=== PATIENT | male | born 1995 | race Caucasian/White ===

== ENCOUNTER 2016-06-27 20:39 | Emergency (ER) | payer BC ==
--- NOTE | 2016-06-27 22:09 | ED CLINICAL REPORT ---
Clinical Report - Physicians/Mid Levels [facility] [address] [place] [place] [address] 06/27/2016 20:41 Patient: SHERRILL ROCHA V Time Seen: 20:52; initial patient contact. Arrived- By private vehicle. Historian- patient. HISTORY OF PRESENT ILLNESS Chief Complaint: Injury to the right middle finger. The injury happened just prior to arrival. The patient sustained a laceration from a knife. Occurred at home. Patient is experiencing mild pain. Patient denies injury to the head or neck. REVIEW OF SYSTEMS The patient sustained a laceration. No swelling, tingling, numbness or weakness. All systems otherwise negative, except as recorded above. PAST HISTORY Appendicitis. SURGERIES: Appendectomy. The patient's dominant hand is the left. Last tetanus immunization was more than 5 years ago. Medications: None. Allergies: No Known Drug Allergy. SOCIAL HISTORY Never smoker. No alcohol use or drug use. ADDITIONAL NOTES The nursing notes have been reviewed with agreement regarding the chief complaint, PMH and patient medications and allergies. PHYSICAL EXAM Vital Signs: 06/27/2016 20:47 BP: 125/65. HR: 116. RR: 16. O2 saturation: 100%. Temp: 98.6 F. Pain level now: 3/10. Have been reviewed. Blood pressure normal. Tachycardic. Respiratory rate normal. Temperature normal. Oxygen saturation normal. Appearance: Alert. Oriented X3. No acute distress. Skin: Skin warm and dry. Extremities: Right middle finger: subcutaneous 4.0 cm laceration. No wrist injury. Hand and wrist exam otherwise negative. Extremities otherwise negative. Neuro, Vascular and Tendons: Vascular status intact. Sensation intact. Motor intact. Tendon function intact. Neuro: Oriented X 3. No motor deficit. No sensory deficit. PROGRESS AND PROCEDURES Digital Nerve Block - Finger: Time: 22:06. Per protocol, time-out completed immediately before the procedure. Digital nerve block performed on the right middle finger. Web space approach utilized. Landmarks identified. Skin prepped. Total volume of 3 mL 1% Lidocaine infiltrated via two punctures using a 27-gauge needle. Patient cooperative during procedure. No complications encountered. Excellent anesthesia achieved. Laceration Repair: Time: 22:07. Location: right middle finger. Per protocol, time-out completed immediately before the procedure. Length: 4 cm. Complexity: complex (requiring revision of wound margins). Wound depth/shape- curved and subcutaneous. Distal neuro/vascular/tendon status normal. Anesthesia provided by digital block using 1% lidocaine. Prepped with Shur-Clens. Wound explored, cleansed and examined to the base in bloodless field extensively with normal saline. Closure of skin: interrupted 4-0 Prolene (5 sutures). Post-procedure: he is stable and there are no complications. Bleeding is controlled and neuro-vascular status is intact distal to the wound. Dressing applied. Tetanus immunization given. Estimated blood loss: 3 mL. Disposition: Discharged home in good and improved condition. Condition: good. CLINICAL IMPRESSION Single deep laceration to the right middle finger.No foreign body present or right fingernail injury. INSTRUCTIONS Protect wound and keep wound area clean. Change dressing twice daily. You may wash wounds briefly, then dry. Apply bacitracin twice daily. Sutures should be removed in seven days. Limit use of your right hand until released. Follow-up: Follow up with your doctor in seven days for suture removal. Call for an appointment. Screening today revealed the patient's blood pressure to be in the pre-hypertensive range. The patient should follow up with a primary care provider for blood pressure management. (Electronically signed by Gavino Johnson Dr. 06/27/2016 22:11)
--- NOTE | 2016-06-27 22:09 | ED NURSING NOTES ---
Clinical Report - Nurses [facility] [address] [place] [address] 06/27/2016 20:41 Patient: SHERRILL ROCHA V TRIAGE Acuity: LEVEL 4. Chief Complaint: INJURY TO RIGHT HAND. Alert. No acute distress. --20:51 Claire Retana R.N. 20:47 06/27/16. BP: 125/65. HR: 116. RR: 16. O2 saturation: 100% on room air. Temp: 98.6 F (oral). Pain level now: 08/13. --20:51 Claire Retana R.N. Weight: 170 kg stated. Height/Length: 76 inches Per Patient. BMI: 45.6. Growth Chart Percentile: Weight: 100%. Height/Length: 98.9%. --20:51 Claire Retana R.N. Medications None. --20:47 Claire Retana R.N. Medication/allergy information source: the patient. --20:51 Claire Retana R.N. Allergies No Known Drug Allergy. --20:48 Claire Retana R.N. History Arrived by private vehicle. Historian: patient. Accompanied by grandfather. This occurred just prior to arrival. He sustained a laceration from a sharp edge. Treatment AUTOMOTIVE PARTS COUNTER ASSOCIATE: None. PAST MEDICAL HX: Tetanus status: unknown. SOCIAL HX: Never smoker. No alcohol use or drug use. FALL RISK ASSESSMENT: Fall risk assessment completed. No fall risk identified. NUTRITIONAL RISK ASSESSMENT: The nutritional risk assessment revealed no deficiencies. FUNCTIONAL ASSESSMENT: Functional assessment: no impairments noted. LEARNING NEEDS ASSESSMENT: The learning needs assessment revealed no barriers. SKIN INTEGRITY ASSESSMENT: Skin integrity risk assessment completed. No skin integrity risk identified. --20:51 Claire Retana R.N. PROBLEMS: Appendicitis. --20:48 Claire Retana R.N. ADDITIONAL SURGERIES: Appendectomy. --20:48 Claire Retana R.N. Interventions ID band on patient. To treatment room. --20:51 Claire Retana R.N. PHYSICAL ASSESSMENT 20:52 06/27/16. Ambulatory to room. GENERAL / NEURO / PSYCH: Oriented X 4. Alert. Appears in no acute distress. EXTREMITIES: Capillary refill is less than 2 seconds in the extremities. Extremity pulses are within normal limits. Neuro-vascular status intact to the extremity. Right middle finger: laceration with controlled bleeding. SKIN: Skin is warm and dry. --20:52 Claire Retana R.N. NURSING PROGRESS NOTES 20:52 06/27/16. Two patient identifiers checked. Call light placed in reach. Bed placed in lowest position. Brakes of bed on. Patient ready for evaluation- chart flagged. --20:52 Claire Retana R.N. 21:19 06/27/2016 CBRHBTR-ZHIDYW-ARLLV PERTUSSIS IM 0.5 mL given. (Lot#: [id number], expiration date: 03/03/2018). Given in the right deltoid. Allergies verified and confirmed 5 rights. Vaccine information statement provided to the patient. --21:19 Claire Retana R.N. ( wound cleansed with soap and water, bacitracin on, covered with band aid and then finger tube gauze). --22:15 Susana Zayas. DISPOSITION / DISCHARGE Departure time: 2214. Discharge instructions provided and reviewed with the patient. Patient verbalized understanding. Written instructions provided in Dutch. The patient was discharged by the physician. He was discharged home and accompanied by family. He left the Emergency Department ambulatory and via private vehicle. Family member driving. --22:16 Susana Zayas Condition at departure: improved and stable. --22:16 Susana Zayas. Locked/Released at 06/27/2016 22:16 by Susana Zayas,
--- NOTE | 2016-06-27 22:09 | ED NURSING NOTES ---
Clinical Report - Nurses [facility] [address] [place] [address] 06/27/2016 20:41 Patient: SHERRILL ROCHA V TRIAGE Acuity: LEVEL 4. Chief Complaint: INJURY TO RIGHT HAND. Alert. No acute distress. --20:51 Claire Retana R.N. 20:47 06/27/16. BP: 125/65. HR: 116. RR: 16. O2 saturation: 100% on room air. Temp: 98.6 F (oral). Pain level now: 08/13. --20:51 Claire Retana R.N. Weight: 170 kg stated. Height/Length: 76 inches Per Patient. BMI: 45.6. Growth Chart Percentile: Weight: 100%. Height/Length: 98.9%. --20:51 Claire Retana R.N. Medications None. --20:47 Claire Retana R.N. Medication/allergy information source: the patient. --20:51 Claire Retana R.N. Allergies No Known Drug Allergy. --20:48 Claire Retana R.N. History Arrived by private vehicle. Historian: patient. Accompanied by grandfather. This occurred just prior to arrival. He sustained a laceration from a sharp edge. 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 PAST MEDICAL HX: Tetanus status: unknown. SOCIAL HX: Never smoker. No alcohol use or drug use. FALL RISK ASSESSMENT: Fall risk assessment completed. No fall risk identified. NUTRITIONAL RISK ASSESSMENT: The nutritional risk assessment revealed no deficiencies. FUNCTIONAL ASSESSMENT: Functional assessment: no impairments noted. LEARNING NEEDS ASSESSMENT: The learning needs assessment revealed no barriers. SKIN INTEGRITY ASSESSMENT: Skin integrity risk assessment completed. No skin integrity risk identified. --20:51 Claire Retana R.N. PROBLEMS: Appendicitis. --20:48 Claire Retana R.N. ADDITIONAL SURGERIES: Appendectomy. --20:48 Claire Retana R.N. Interventions ID band on patient. To treatment room. --20:51 Clarie Retana R.N. PHYSICAL ASSESSMENT 20:52 06/27/16. Ambulatory to room. GENERAL / NEURO / PSYCH: Oriented X 4. Alert. Appears in no acute distress. EXTREMITIES: Capillary refill is less than 2 seconds in the extremities. Extremity pulses are within normal limits. Neuro-vascular status intact to the extremity. Right middle finger: laceration with controlled bleeding. SKIN: Skin is warm and dry. --20:52 Claire Retana R.N. NURSING PROGRESS NOTES 20:52 06/27/16. Two patient identifiers checked. Call light placed in reach. Bed placed in lowest position. Brakes of bed on. Patient ready for evaluation- chart flagged. --20:52 Claire Retana R.N. 21:19 06/27/2016 FJWCFXA-KHKFYY-RRXOQ PERTUSSIS IM 0.5 mL given. (Lot#: [id number], expiration date: 03/03/2018). Given in the right deltoid. Allergies verified and confirmed 5 rights. Vaccine information statement provided to the patient. --21:19 Claire Retana R.N. ( wound cleansed with soap and water, bacitracin on, covered with band aid and then finger tube gauze). --22:15 Susana Zayas. DISPOSITION / DISCHARGE Departure time: 2214. Discharge instructions provided and reviewed with the patient. Patient verbalized understanding. Written instructions provided in Guatemalan. The patient was discharged by the physician. He was discharged home and accompanied by family. He left the Emergency Department ambulatory and via private vehicle. Family member driving. --22:16 Susana Zayas Condition at departure: improved and stable. --22:16 Susana Zayas. Locked/Released at 06/27/2016 22:16 by Susana Zayas,
--- NOTE | 2016-06-27 22:09 | ED ORDER SUMMARY ---
..... Patient: SHERRILL ROCHA V OrderSheet [facility] VisitID: [id number] [address] [place] [address] 20y, M Registration Date/Time: 06/27/2016 ORDER SHEET Weight: 170.0 kg (stated) Allergies: No Known Drug Allergy GENERAL ORDERS: Suture Set-up: (21:04 06/27/2016 Winnie Napier) (21:13 MWinterer R.N.) MEDICATION ORDERS: Loulfom-Dxwjzo-Itrgn Pertussis IM 0.5 mL (NOW, per protocol) (21:04 06/27/2016 Winnie Napier) (Ack 21:13 MWinterer R.N.) (21:19 MWinterer R.N.) IV FLUIDS: ORDER SHEET NOTES: [Electronically signed by Gavino Johnson Dr. (22:11 06/27/2016)] [Electronically signed by Susana Zayas (22:16 06/27/2016)] [Electronically locked/signed by Susana Zayas (22:16 06/27/2016)]
--- NOTE | 2016-06-27 22:09 | ED ORDER SUMMARY ---
..... Patient: SHERRILL ROCHA V OrderSheet [facility] VisitID: [id number] [address] [place] [address] 20y, M Registration Date/Time: 06/27/2016 ORDER SHEET Weight: 170.0 kg (stated) Allergies: No Known Drug Allergy GENERAL ORDERS: Suture Set-up: (21:04 06/27/2016 Winnie Napier) (21:13 MWinterer R.N.) MEDICATION ORDERS: Clutufw-Nllnqo-Vprac Pertussis IM 0.5 mL (NOW, per protocol) (21:04 06/27/2016 Winnie Napier) (Ack 21:13 MWinterer R.N.) (21:19 MWinterer R.N.) IV FLUIDS: ORDER SHEET NOTES: [Electronically signed by Gavino Johnson Dr. (22:11 06/27/2016)] [Electronically signed by Susana Zayas (22:16 06/27/2016)] [Electronically locked/signed by Susana Zayas (22:16 06/27/2016)]
--- NOTE | 2016-06-27 22:17 | ED DISCHARGE INSTRUCTIONS ---
Patient: SHERRILL ROCHA V General Instructions [facility] VisitID: [id number] [place] [address] 20y, M Registration Date/Time: 06/27/2016 Single deep laceration to the right middle finger.No foreign body present or right fingernail injury. INSTRUCTIONS Protect wound and keep wound area clean. Change dressing twice daily. You may wash wounds briefly, then dry. Apply bacitracin twice daily. Sutures should be removed in seven days. Limit use of your right hand until released. Follow-up: Follow up with your doctor in seven days for suture removal. Call for an appointment. Screening today revealed the patient's blood pressure to be in the pre-hypertensive range. The patient should follow up with a primary care provider for blood pressure management. ADDITIONAL INFORMATION Laceration (All Closures) Alaceration is a cut through the skin. This will usually require stitches (sutures) or ujdson if it is deep. Minor cuts may be treated with a surgical tape closure orskin glue. Home care The following guidelines will help you care for your laceration at home: Extremity, face, or trunk wounds Keep the wound clean and dry. If a bandage was applied and it becomes wet or dirty, replace it. Otherwise, leave it in place for the first 24 hours. If stitches or judson were used, clean the wound daily. After removing the bandage, wash the area with soap and water. Use a wet cotton swab to loosen and remove any blood or crust that forms. The doctor may prescribe an antibiotic cream or ointment to prevent infection. Do not stop taking this medication until you have finished the prescribed course or the doctor tells you to stop. The doctor may also prescribe medications for pain. Follow the doctors instructions for taking these medications. You may remove the bandage to shower as usual after the first 24 hours, but do not soak the area in water (no swimming) until the stitches or judson are removed. If surgical tape was used, keep the area clean and dry. If it becomes wet, blot it dry with a towel. If skin glue was used, do not scratch, rub, or pick at the adhesive film. Do not place tape directly over the film. Do not apply liquid, ointment, or creams to the wound while the film is in place. Do not clean the wound with peroxide and do not apply ointments. Avoid activities that cause heavy sweating until the film has fallen off. Protect the wound from prolonged exposure to sunlight or tanning lamps. You may shower as usual but do not soak the wound in water (no baths or swimming). The film will fall off by itself in 510 days. Scalp wounds During the first two days, you may carefully rinse your hair in the shower to remove blood, glass or dirt particles. After two days, you may shower and shampoo your hair normally. Do not soak your scalp in the tub or go swimming until the stitches or judson have been removed. Talk with your doctor before applying any antibiotic ointment to the wound. Mouth wounds Eat soft foods to reduce pain. If the cut is inside of your mouth, clean by rinsing after each meal and at bedtime with a mixture of equal parts water and hydrogen peroxide (do not swallow!). Or, you can use a cotton swab to directly apply hydrogen peroxide onto the cut. Mouth wounds can be painful when eating. You may use an ywtt-rwl-cjnajqe local numbing solution for pain relief. If this is not available, you may use any numbing solution for teething babies. You may apply this directly to the sores with a cotton-tip swab or with your finger. Follow-up care Follow up with your health care provider. Most skin wounds heal within ten days. Mouth and facial wounds heal within five days. However, even with proper treatment, a wound infection may sometimes occur. Therefore, you should check the wound daily for signs of infection listed below. Stitches should be removed from the face within five days; stitches and judson should be removed from other parts of the body within 714 days. If dissolving stitches were used in the mouth, these will fall out or dissolve without the need for removal. If tape closures were used, remove them yourself if they have not fallen off after 7 days. Ifskin glue was used, the film will fall off by itself in 510 days. When to seek medical care Get prompt medical attention if any of these occur: Bleeding not controlled by direct pressure Signs of infection, including increasing pain in the wound, increasing wound redness or swelling, or pus coming from the wound Fever of 100.4F (38C) or higher, or as directed by your health care provider Stitches or judson come apart or fall out or surgical tape falls off before 7 days Wound edges re-open Laceration: Will There Be A Scar? A laceration is a cut through one or more layers of the skin. The goal of emergency treatment is to clean the wound and close it to prevent infection, control bleeding and speed healing. Cuts heal because the body is able to repair the skin by "sealing" the edges together with collagen, a kind of "skin cement." How deep your cut is, its location on your body, your age and the way your skin heals all determine how visible the final scar will be. Some persons tend to heal with more scar tissue than others. This cut will probably heal similar to other cuts you have had in the past. What You Can Do: There are a few simple things that you can do to limit the amount of scar that forms: 1) PREVENT INFECTION: An infected wound makes a bigger scar. Keep the wound clean and dry. Change the dressing and apply any ointment/cream as directed. 2) MASSAGE THE WOUND:After the stitches have been removed: Use a moisturizing cream or lotion containing Aloe or Vitamin E Oil and gently massage the skin around the wound with your fingertips (wash your hands first!). Do this twice a day for the first two weeks, then once a day for a month. This will increase the flow of oxygen and blood to the wound and prevent excess scar tissue from building up. 3) AVOID SUN EXPOSURE: During the first six months, avoid sun exposure since the scar may james a much darker color than the skin around it. When in the sun, use SPF #50 (or greater) sun block on the scar, or cover the area with a hat or clothing. What To Expect: -- The cut will be sealed within 2 days and will be strong within 5-10 days. However, it will take at least SIX MONTHS for it to be fully healed. -- During the FIRST THREE MONTHS, you may notice the scar line getting more red or purple in color. The scar may become raised. The skin around the wound may feel thick and lumpy. -- During the FOURTH TO SIXTH MONTHS, this process begins to reverse. The red and purple color will fade, the scar line flattens, and the skin around it feels more normal. -- In most cases, the way the scar line looks after six months is the way it will remain, although there may be some continued improvement up to one year after the injury. Is There Anything Else That Can Be Done? If you do not like the way the scar looks after six months, a plastic surgeon may be able to perform a "scar revision." If you have any questions or problems as your wound heals, contact your doctor or this facility. We will be glad to assist you. Bandage Change If the bandage becomes wet or dirty, replace it. Otherwise, leave it in place for the first 24 hours. Then once a day: After removing the bandage, wash the area with soap and water. Use a wet cotton swab to loosen and remove any blood or crust that forms on the wound. After cleaning, apply a thin layer of antibiotic ointment or cream. Reapply the bandage. You may shower as usual after the first 24 hours. If the bandage is on an arm or leg, cover it with a plastic bag rubber banded at both ends before showering. No tub baths or swimming until the bandage is removed and the wound healed (at least 7 days). You have been given the following additional information: Laceration, All Laceration, How To Minimize Scar Dressing Change Limit use of your right hand until released. (Electronically signed by Gavino Johnson Dr. 06/27/2016 22:11)
--- NOTE | 2016-06-27 22:17 | ED MED RECONCILIATION SUMMARY ---
Patient: SHERRILL ROCHA V Medication Reconciliation Report [facility] VisitID: [id number] [address] [place] [address] 20y, M Registration Date/Time: 06/27/2016 Weight: 170.0 kg Height/Length: 76 in. BMI: 45.6 ALLERGIES: No Known Drug Allergy The patient's Home Medications are listed below: NONE. The source(s) of the original Home Medication information: patient The following Medications were given to the patient in the Emergency Department: GSCVSVJ-CMAKJJ-QFFQO PERTUSSIS [IM] IM 0.5 mL, administered: 06/27/2016 9:19:00 PM The following Medications were prescribed to the patient: None.
--- NOTE | 2016-06-27 22:17 | ED MAR SUMMARY ---
..... Medication Administration Record [facility] [address] [place] [address] Patient: SHERRILL ROCHA V Visit ID: [id number] 20y, M Weight: 170.0 kg Height/Length: 76 in BMI: 45.6 ALLERGIES: No Known Drug Allergy Given 21:19 06/27/2016 Claire Retana R.N. Medication Administered: XSMKPYE-DKSBWB-SYOQK PERTUSSIS [IM], Dose: 0.5 mL IM. Medication Ordered: Jnzpwni-Prjcbq-Zeofj Pertussis IM 0.5 mL (NOW, per protocol).
--- NOTE | 2016-06-27 22:17 | ED MAR SUMMARY ---
..... Medication Administration Record [facility] [address] [place] [address] Patient: SHERRILL ROCHA V Visit ID: [id number] 20y, M Weight: 170.0 kg Height/Length: 76 in BMI: 45.6 ALLERGIES: No Known Drug Allergy Given 21:19 06/27/2016 Claire Retana R.N. Medication Administered: GENIRCF-PXZKYW-AUXVF PERTUSSIS [IM], Dose: 0.5 mL IM. Medication Ordered: Njsgfls-Gjahfn-Wwrwy Pertussis IM 0.5 mL (NOW, per protocol).
--- NOTE | 2016-06-27 22:17 | ED MED RECONCILIATION SUMMARY ---
Patient: SHERRLIL ROCHA V Medication Reconciliation Report [facility] VisitID: [id number] [address] [place] [address] 20y, M Registration Date/Time: 06/27/2016 Weight: 170.0 kg Height/Length: 76 in. BMI: 45.6 ALLERGIES: No Known Drug Allergy The patient's Home Medications are listed below: NONE. The source(s) of the original Home Medication information: patient The following Medications were given to the patient in the Emergency Department: EBXRFTO-WIOITC-SACHK PERTUSSIS [IM] IM 0.5 mL, administered: 06/27/2016 9:19:00 PM The following Medications were prescribed to the patient: None.
== END 2016-06-27 22:15 | disposition home or self-care (01) ==
LOC: ED SRH 20:39
DX: S61.212A Laceration without foreign body of right middle finger without damage to nail, initial encounter (principal); W26.0XXA Contact with knife, initial encounter; Y93.9 Activity, unspecified; Y92.009 Unspecified place in unspecified non-institutional (private) residence as the place of occurrence of the external cause; Y99.9 Unspecified external cause status; Z23 Encounter for immunization